=== PATIENT | female | born 1945 | race Caucasian/White ===

== ENCOUNTER 2024-07-19 09:56 | Day surgery (SDC) | payer MEDICARE, BC ==
[2024-07-14 11:12] LABS: BASOPHILS % (AUTO) 0.6 % (0-1); EOSINOPHILS # (AUTO) 0.4 X10'3 (0-0.9); EOSINOPHILS % (AUTO) 7.7 % (0-6); HEMATOCRIT 36.7 % (35.0-45.0); HEMOGLOBIN 12.4 g/dl (12.0-16.0); LYMPHOCYTES # (AUTO) 1.3 X10'3 (1.1-4.8); LYMPHOCYTES % (AUTO) 23.9 % (21-51); MEAN CORPUSCULAR HEMOGLOBIN 31.5 PG (27.0-31.0); MEAN CORPUSCULAR HGB CONC 33.9 g/dL (33.0-36.5); MEAN CORPUSCULAR VOLUME 93.1 FL (78-98); MEAN PLATELET VOLUME 6.6 FL (7.4-10.4); MONOCYTES # (AUTO) 0.5 X10'3 (0-0.9); MONOCYTES % (AUTO) 9.8 % (2-12); NEUTROPHILS # (AUTO) 3.3 X10'3 (1.8-7.7); PLATELET COUNT 323 X10'3 (140-440); RED BLOOD COUNT 3.94 X10'6 (4.20-5.60); WHITE BLOOD COUNT 5.6 X10'3 (4.5-11.0)
[2024-07-14 11:22] LABS: APTT 25 SECONDS (22-32); PROTHROMBIN TIME 10.4 SECONDS (9.0-12.0)
[2024-07-14 11:30] LABS: ALBUMIN 3.6 G/DL (3.4-5.0); ANION GAP 11 (8-16); BLOOD UREA NITROGEN 8 MG/DL (7-18); BUN/CREATININE RATIO 12.1 (10.0-20.0); CALCIUM 9.1 MG/DL (8.5-10.1); CHLORIDE 105 MMOL/L (99-107); CHOL/HDL RATIO 2.1 (0.00-4.99); CHOLESTEROL 124 MG/DL (0-200); CREATININE 0.66 MG/DL (0.40-0.90); GLUCOSE 91 MG/DL (70-104); HDL CHOLESTEROL 58 MG/DL (35-60); LDL CHOLESTEROL 56 MG/DL (50-100); POTASSIUM 3.4 MMOL/L (3.5-5.1); SODIUM 141 MMOL/L (135-145); TOTAL CARBON DIOXIDE 25.3 MMOL/L (24-32); TRIGLYCERIDES 51 MG/DL (20-135); eGFR 87 ML/MIN
[~2024-07-19] VITALS: Ht 160 cm; Wt 50.3 kg
[2024-07-19] VITALS (8 sets, daily range): BP systolic 117–144; BP diastolic 57–77; PULSE 69–81; RESP 11–16; TEMP 97.7; O2SAT 95–100
[2024-07-19] MEDS ORDERED: ASCO500C17 PO (10:53)
[2024-07-19] MEDS ORDERED: CHOL20002 PO (10:53)
[2024-07-19] MEDS ORDERED: OSC500T PO (10:54)
[2024-07-19] MEDS ORDERED: ATOR40TA71 PO (10:54)
[2024-07-19] MEDS ORDERED: LEVO50TA PO (10:55)
[2024-07-19] MEDS ORDERED: METO-395 PO (10:56)
[2024-07-19] MEDS ORDERED: ASPI81TA52 PO (10:56)
[2024-07-19] MEDS: normal saline 1,000 ML IV SCH (12:27)
[2024-07-19] MEDS: diphenhydrAMINE 25mg capsule PO PRN (12:27)
[2024-07-19] MEDS: LORazepam 0.5 MG tablet PO PRN (12:27)
[2024-07-19] MEDS ORDERED: midazolam 1 mg/ML 2ml injection ONE (13:37)
[2024-07-19] MEDS ORDERED: fentaNYL/PF 50MCG/1 ML 2ML syringe ONE (13:37)
[2024-07-19] MEDS ORDERED: heparin 1,000unit/ml 10ml vial 10 ML ONE ×2 (13:37→14:50)
[2024-07-19] MEDS ORDERED: LIDOcaine 1% (10mg/ml) 2ml vial ONE (13:37)
[2024-07-19] MEDS ORDERED: verapamil 2.5 mg/ml inj IV ONE (13:37)
[2024-07-19] MEDS ORDERED: iohexol 350MG/ML 100ml bottle IV ONE (13:38)
[2024-07-19] MEDS ORDERED: nitroGLYCERIN 500mcg/5mL D5W 5 ML IV ONE (13:38)
[2024-07-19] MEDS ORDERED: LIDOcaine 1% 30ml preserv. free vial ONE (14:01)
[2024-07-19] MEDS ORDERED: iohexol 350 MG/ML 50ML vial IV ONE ×2 (14:22→14:44)
[2024-07-19] MEDS ORDERED: aspirin 325mg tablet ONE (14:24)
[2024-07-19] MEDS ORDERED: clopidogrel 300mg tablet ONE (14:24)
[2024-07-19] MEDS ORDERED: CLOP-32 PO (15:40)
== END 2024-07-19 17:30 | disposition home or self-care (01) ==
LOC: SSTAY O 09:56 → EDSTATUS 14:00 → SSTAY O 17:30
PROVIDERS: ATTEND Internal Medicine Interventional Cardiology
DX: R07.89 Other chest pain (principal); I25.119 Atherosclerotic heart disease of native coronary artery with unspecified angina pectoris; R94.31 Abnormal electrocardiogram [ECG] [EKG]; I10 Essential (primary) hypertension; E78.00 Pure hypercholesterolemia, unspecified; E03.9 Hypothyroidism, unspecified; K21.9 Gastro-esophageal reflux disease without esophagitis; F32.A Depression, unspecified; G47.00 Insomnia, unspecified; M81.0 Age-related osteoporosis without current pathological fracture; Z85.3 Personal history of malignant neoplasm of breast; Z79.82 Long term (current) use of aspirin; Z79.890 Hormone replacement therapy; Z79.899 Other long term (current) drug therapy
CPT/HCPCS: 36415; 80048; 80061; 84132; 85025; 85610; 85730; 93005; 93458; 93571; 99152; 99153; A6258; A6402; C1725; C1751; C1760; C1769; C1894; C9600; J1644; J2003; J2250; J3010; J3490; J7030; Q0163; Q9967; Z7610; A6449; C1874